=== PATIENT | male | born 1960 | race Caucasian/White ===

== ENCOUNTER 2023-12-28 13:51 | Outpatient (CLI) | payer BC, SELFPAY | END 2023-12-28 13:52 | disposition home or self-care (01) | LOC: NFLDUCREF 14:01 | PROVIDERS: PCP Internal Medicine; Visit Provider Physician Assistant | DX: R31.9 Hematuria, unspecified (principal); N39.0 Urinary tract infection, site not specified; K80.20 Calculus of gallbladder without cholecystitis without obstruction | CPT/HCPCS: 80076; 87086; 87186 ==